=== PATIENT | male | born 1970 | race Two or more races ===

== ENCOUNTER 2022-02-22 08:38 | Emergency (ER) | payer OTHER ==
[~2022-02-22] VITALS: Ht 167.6 cm; Wt 73.5 kg
[2022-02-22] MEDS ORDERED: TRILIPIX45 MG PO (08:47)
[2022-02-22] MEDS ORDERED: SYNTHROID50 MCG PO (08:48)
== END 2022-02-22 12:08 | disposition home or self-care (01) ==
LOC: ER 08:38
DX: T78.40XA Allergy, unspecified, initial encounter (principal); T50.994A Poisoning by other drugs, medicaments and biological substances, undetermined, initial encounter; Y92.009 Unspecified place in unspecified non-institutional (private) residence as the place of occurrence of the external cause; Z88.6 Allergy status to analgesic agent; E11.9 Type 2 diabetes mellitus without complications